=== PATIENT | male | born 1965 | race African-American/Black ===

== ENCOUNTER 2016-10-19 09:03 | Emergency (ER) | payer OTHER ==
[~2016-10-19] VITALS: Ht 188 cm; Wt 90.9 kg
[2016-10-19] MEDS ORDERED: IBUPROFEN 600 MG TABLET PO ONE (09:30)
[2016-10-19 11:05] LABS: APPEARANCE,URINE CLEAR (CLEAR); GLUCOSE, URINE (UA) NEGATIVE (NEGATIVE); KETONES,URINE NEGATIVE (NEGATIVE); LEUKOCYTE ESTERASE ,URINE NEGATIVE (NEGATIVE); OCCULT BLOOD,URINE MODERATE (NEGATIVE); PROTEIN,URINE NEGATIVE (NEGATIVE)
[2016-10-19 11:14] LABS: SQUAMOUS EPITHELIAL CELL,UR Rare /LPF (None Seen); WBC,URINE None Seen /HPF (0-5)
[2016-10-19] MEDS ORDERED: CefTRIAXone SODIUM 1 GM/VIAL IM ONE (11:15)
[2016-10-19] MEDS ORDERED: AZITHROMYCIN 250 MG TABLET PO ONE (11:15)
[2016-10-19] MEDS ORDERED: LIDOCAINE HCL/PF 1% 2 ML VIAL IM ONE (11:15)
[2016-10-19 11:54] VITALS: BP 105/73
[2016-10-22 00:03] LABS: GC DNA N.A. AMPLIFY Negative (Negative)
== END 2016-10-19 11:56 | disposition home or self-care (01) ==
LOC: EMS 09:04
DX: N45.1 Epididymitis (principal); F17.210 Nicotine dependence, cigarettes, uncomplicated
CPT/HCPCS: 76870; 81001; 87491; 87591; 96372; 99285; J0696; J3490

== ENCOUNTER 2018-06-19 13:04 | Emergency (ER) | payer OTHER ==
[~2018-06-19] VITALS: Ht 190.5 cm; Wt 90.0 kg
[2018-06-19] MEDS ORDERED: IBUPROFEN 800 MG TABLET PO ONE (13:45)
[2018-06-19 14:41] VITALS: BP 118/53
== END 2018-06-19 15:10 | disposition home or self-care (01) ==
LOC: EMS 13:05
DX: S63.501A Unspecified sprain of right wrist, initial encounter (principal); F17.210 Nicotine dependence, cigarettes, uncomplicated; X58.XXXA Exposure to other specified factors, initial encounter; Y93.89 Activity, other specified; Y92.89 Other specified places as the place of occurrence of the external cause; Y99.8 Other external cause status

== ENCOUNTER 2019-08-07 21:19 | Emergency (ER) | payer OTHER ==
[~2019-08-07] VITALS: Ht 188 cm; Wt 90.9 kg
[2019-08-07] MEDS ORDERED: ACETAMINOPHEN 500 MG TABLET PO ONE (22:45)
[2019-08-07] MEDS ORDERED: SODIUM CHLORIDE 0.9% 1,000 ML IV ONE (22:45)
[2019-08-07] MEDS ORDERED: DEXAMETHASONE SOD PHOS 4 MG/ML 5 ML VIAL IVP ONE (22:45)
[2019-08-07] MEDS ORDERED: DiphenhydrAMINE HCL 50 MG/ML VIAL IVP ONE (22:45)
[2019-08-07] MEDS ORDERED: METOCLOPRAMIDE HCL 5 MG/ML 2 ML VIAL IVP ONE (22:45)
[2019-08-08 00:15] VITALS: BP 128/78
== END 2019-08-08 00:47 | disposition home or self-care (01) ==
LOC: EMS 21:19
DX: R51 Headache (principal); F17.210 Nicotine dependence, cigarettes, uncomplicated
CPT/HCPCS: 96374; 96375; 99284; J1100; J1200; J2765; J7030

== ENCOUNTER 2022-10-16 17:54 | Emergency (ER) | payer OTHER ==
[~2022-10-16] VITALS: Ht 190.5 cm; Wt 81.8 kg
[2022-10-16] MEDS ORDERED: LIDOCAINE 5% TRANSDERMAL PATCH TD ONE (19:00)
[2022-10-16] MEDS ORDERED: CYCLOBENZAPRINE HCL 10 MG TABLET PO ONE (19:00)
[2022-10-16] MEDS ORDERED: KETOROLAC TROMETHAMINE 30 MG/ML VIAL IM ONE (19:00)
[2022-10-16] MEDS ORDERED: LIDO700A15 TP (20:40)
[2022-10-16] MEDS ORDERED: CYCL-448 PO (20:40)
[2022-10-16] MEDS ORDERED: IBUP-1492 PO (20:40)
[2022-10-16 20:51] VITALS: BP 135/72
== END 2022-10-16 20:53 | disposition home or self-care (01) ==
LOC: EMS 17:55
DX: M54.9 Dorsalgia, unspecified (principal); F17.210 Nicotine dependence, cigarettes, uncomplicated
CPT/HCPCS: 99283; 96372; J1885